=== PATIENT | female | born 1965 | race Two or more races ===

== ENCOUNTER 2022-06-25 09:01 | Outpatient (CLI) | payer BC, SELFPAY ==
--- NOTE | 2022-06-25 09:15 | CRLHL7_ITS ---
For Patients: As a result of the Century Cures Act, medical imaging exams and procedure reports are released immediately into your electronic medical record. You may view this report before your referring provider. If you have questions, please contact your health care provider. INDICATION: Left lower quadrant pain COMPARISON: none TECHNIQUE: 2D archuleta scale and color Doppler images were acquired of the pelvis using a transabdominal and transvaginal approach. Power Doppler evaluation of the ovaries also performed. FINDINGS: Sonographic images demonstrate a normal size and smooth outer contour of the uterus. Uterus measures 7.2 cm in length by 2.2 cm in AP diameter by 3.9 cm in transverse dimension. The myometrium has a normal uniform echotexture. The endometrial lining appears normal and measures 2 mm in composite thickness. The right ovary measures 2.3 x 1.2 x 2.0 cm in size and the left ovary measures 3.1 x 2.0 x 1.7 cm. The ovaries demonstrate normal arterial and venous blood flow on color Doppler analysis. There are no suspicious fluid collections within the cul-de-sac. Normal power Doppler evaluation of both ovaries. IMPRESSION: Normal pelvic ultrasound. No evidence of torsion. Dictated by Homer Meza MD @ 06/25/2022 12:16:40 PM (Electronically Signed)
== END 2022-06-25 09:02 | disposition home or self-care (01) ==
PROVIDERS: PCP Family Medicine; Visit Provider Family Medicine
DX: R10.32 Left lower quadrant pain (principal); R10.2 Pelvic and perineal pain
CPT/HCPCS: 76830; 76856; 93976

== ENCOUNTER 2022-07-27 16:17 | Outpatient (RCR) | payer BC, SELFPAY | END 2022-09-18 15:00 | disposition home or self-care (01) | PROVIDERS: PCP Family Medicine; Visit Provider Family Medicine | DX: M54.16 Radiculopathy, lumbar region (principal); M54.50 Low back pain, unspecified; Z51.89 Encounter for other specified aftercare | CPT/HCPCS: 97110; 97161 ==

== ENCOUNTER 2023-03-09 16:26 | Outpatient (CLI) | payer BC, SELFPAY ==
--- NOTE | 2023-03-09 16:45 | CRLHL7_ITS ---
For Patients: As a result of the Cures Act, medical imaging exams and procedure reports are released immediately into your electronic medical record. You may view this report before your referring provider. If you have questions, please contact your health care provider. BILATERAL SCREENING MAMMOGRAM WITH COMPUTER-AIDED DETECTION AND TOMOSYNTHESIS TECHNIQUE: CC and MLO views were obtained. These mammographic images have been obtained using full-field digital technique. These mammographic images were interpreted with the benefit of computer-aided detection. Breast tomosynthesis was used in this interpretation. COMPARISON FILM: 01/26/22, 11/18/20, 11/07/19. FINDINGS: There are scattered areas of fibroglandular density. IMPRESSION: There is no radiographic evidence for malignancy. ASSESSMENT: BI-RADS Category 1: Negative RECOMMENDATION: Routine screening mammogram in 1 year. A lay language report of this examination will be provided to the patient. TATO MIJARES M.D. Diagnostic/Nuclear Medicine Radiologist [email or web address] Transcribed: 03/10/2023, 6:[address]/Dictated by: Tato Mijares MD @ 03/10/2023 8:50:00 AM (Electronically Signed)
== END 2023-03-09 16:27 | disposition home or self-care (01) ==
LOC: MAMMO 16:29
PROVIDERS: PCP Family Medicine; Visit Provider Family Medicine
DX: Z12.31 Encounter for screening mammogram for malignant neoplasm of breast (principal)
CPT/HCPCS: 77063; 77067

== ENCOUNTER 2023-08-10 09:11 | Outpatient (CLI) | payer BC, SELFPAY | END 2023-08-10 09:12 | disposition home or self-care (01) | LOC: NFLDREF 08-11 08:10 | PROVIDERS: PCP Family Medicine; Referring Provider Family Medicine; Visit Provider Family Medicine | DX: E11.69 Type 2 diabetes mellitus with other specified complication (principal); E66.9 Obesity, unspecified; E78.5 Hyperlipidemia, unspecified; I10 Essential (primary) hypertension | CPT/HCPCS: 80053; 80061; 82043; 82570 ==

== ENCOUNTER 2023-08-25 10:06 | Outpatient (CLI) | payer BC, SELFPAY | END 2023-08-25 10:07 | disposition home or self-care (01) | LOC: NFLDREF 09-01 16:24 | PROVIDERS: PCP Family Medicine; Referring Provider Family Medicine; Visit Provider Family Medicine | DX: I10 Essential (primary) hypertension (principal) | CPT/HCPCS: 80048 ==

== ENCOUNTER 2023-09-13 15:47 | Outpatient (CLI) | payer BC, SELFPAY ==
--- NOTE | 2023-09-13 16:00 | CRLHL7_ITS ---
For Patients: As a result of the Century Cures Act, medical imaging exams and procedure reports are released immediately into your electronic medical record. You may view this report before your referring provider. If you have questions, please contact your health care provider. INDICATION: Left lower quadrant pain. TECHNIQUE: Transabdominal and transvaginal pelvic ultrasound. Grayscale, color and spectral Doppler images. FINDINGS: Uterus is anteflexed and measures 6.2 x 3.6 x 3.7 cm. Endometrial stripe thickness is 3 mm. Both ovaries appear normal and have normal color and spectral Doppler flow. No adnexal mass or free fluid. IMPRESSION: Normal pelvic ultrasound. Dictated by Ramon Arce MD @ 09/14/2023 11:41:20 AM (Electronically Signed)
== END 2023-09-13 15:48 | disposition home or self-care (01) ==
LOC: US 15:48
PROVIDERS: PCP Family Medicine; Visit Provider Obstetrics & Gynecology
DX: R10.32 Left lower quadrant pain (principal); R10.2 Pelvic and perineal pain
CPT/HCPCS: 76830; 76856; 93976; T1013

== ENCOUNTER 2023-12-17 09:03 | Outpatient (CLI) | payer BC, SELFPAY | END 2023-12-17 09:04 | disposition home or self-care (01) | LOC: NFLDREF 12-22 12:50 | PROVIDERS: PCP Family Medicine; Referring Provider Family Medicine; Visit Provider Family Medicine | DX: E11.69 Type 2 diabetes mellitus with other specified complication (principal); E78.5 Hyperlipidemia, unspecified; I10 Essential (primary) hypertension; Z79.84 Long term (current) use of oral hypoglycemic drugs; E11.21 Type 2 diabetes mellitus with diabetic nephropathy | CPT/HCPCS: 80053; 80061 ==

== ENCOUNTER 2023-12-22 15:24 | Outpatient (CLI) | payer BC, SELFPAY | END 2023-12-22 15:25 | disposition home or self-care (01) | LOC: NFLDREF 15:24 | PROVIDERS: PCP Family Medicine; Visit Provider Family Medicine | DX: E11.21 Type 2 diabetes mellitus with diabetic nephropathy (principal); I10 Essential (primary) hypertension; Z79.84 Long term (current) use of oral hypoglycemic drugs | CPT/HCPCS: 82043; 82570 ==

== ENCOUNTER 2024-03-15 15:11 | Outpatient (CLI) | payer BC, SELFPAY ==
--- NOTE | 2024-03-15 15:20 | CRLHL7_ITS ---
For Patients: As a result of the Century Cures Act, medical imaging exams and procedure reports are released immediately into your electronic medical record. You may view this report before your referring provider. If you have questions, please contact your health care provider. BILATERAL SCREENING MAMMOGRAM WITH COMPUTER-AIDED DETECTION AND TOMOSYNTHESIS TECHNIQUE: CC and MLO views were obtained. These mammographic images have been obtained using full-field digital technique. These mammographic images were interpreted with the benefit of computer-aided detection. Breast tomosynthesis was used in this interpretation. COMPARISON FILM: 03/09/23, 01/26/22, 11/18/20. FINDINGS: There are scattered areas of fibroglandular density. IMPRESSION: There is no radiographic evidence for malignancy. ASSESSMENT: BI-RADS Category 2: Benign RECOMMENDATION: Routine screening mammogram in 1 year. A lay language report of this examination will be provided to the patient. HOMER FIGUEROA M.D. Diagnostic Radiologist [email or web address] Transcribed: 2:[address]/Dictated by: Homer Figueroa MD @ 03/16/2024 10:27:00 AM (Electronically Signed)
== END 2024-03-15 15:12 | disposition home or self-care (01) ==
LOC: MAMMO 15:12
PROVIDERS: PCP Family Medicine; Visit Provider Family Medicine
DX: Z12.31 Encounter for screening mammogram for malignant neoplasm of breast (principal)
CPT/HCPCS: 77063; 77067; T1013

== ENCOUNTER 2025-04-10 16:02 | Outpatient (CLI) | payer BC, SELFPAY ==
--- NOTE | 2025-04-10 16:20 | CRLHL7_ITS ---
For Patients: As a result of the Century Cures Act, medical imaging exams and procedure reports are released immediately into your electronic medical record. You may view this report before your referring provider. If you have questions, please contact your health care provider. INDICATION: BILATERAL SCREENING MAMMOGRAM, ASYMPTOMATIC 59 Y/O FEMALE COMPARISON: 01/26/2022, 03/09/2023, 03/15/2024 TECHNIQUE: Digital mammogram in CC and MLO projections including computer-aided detection (CAD) and tomosynthesis. BREAST COMPOSITION: There are scattered areas of fibroglandular density. FINDINGS: No suspicious findings. ASSESSMENT: BI-RADS 1 Negative RECOMMENDATION: Annual screening mammogram. A lay language report of this examination will be provided to the patient. Dictated by: Emily High MD @ 04/11/2025 10:32:26 (Electronically Signed)
== END 2025-04-10 16:03 | disposition home or self-care (01) ==
LOC: MAMMO 16:03
PROVIDERS: PCP Family Medicine; Visit Provider Family Medicine
DX: Z12.31 Encounter for screening mammogram for malignant neoplasm of breast (principal)
CPT/HCPCS: 77063; 77067; T1013

== ENCOUNTER 2025-07-20 09:39 | Outpatient (CLI) | payer BC, SELFPAY | END 2025-07-20 09:40 | disposition home or self-care (01) | LOC: NFLDREF 07-26 01:33 | PROVIDERS: PCP Family Medicine; Referring Provider Family Medicine; Visit Provider Family Medicine | DX: I10 Essential (primary) hypertension (principal); E78.5 Hyperlipidemia, unspecified; E11.69 Type 2 diabetes mellitus with other specified complication; E11.21 Type 2 diabetes mellitus with diabetic nephropathy; R80.8 Other proteinuria; Z12.4 Encounter for screening for malignant neoplasm of cervix | CPT/HCPCS: 80053; 80061; 82043; 82570; 82607 ==

== ENCOUNTER 2025-07-24 13:16 | Outpatient (CLI) | payer BC, SELFPAY ==
[2025-07-26 07:10] LABS: HPV Source Cervical/Vag
[2025-07-31 09:07] LABS: Pap Test Digital Imaging Done
== END 2025-07-24 13:17 | disposition home or self-care (01) ==
PROVIDERS: PCP Family Medicine; Visit Provider Family Medicine
DX: Z12.4 Encounter for screening for malignant neoplasm of cervix (principal)
CPT/HCPCS: 87624; 87625; 88141; 88142; 88175